=== PATIENT | male | born 1960 | race Two or more races ===

== ENCOUNTER 2025-04-22 08:00 | Day surgery (SDC) | payer OTHER ==
[2025-04-22] MEDS ORDERED: DIPHENHYDRAMINE HCL 50 MG/ML VIAL 1ML IV ONE ×2 (10:30→11:00)
[2025-04-22] MEDS ORDERED: MIDAZOLAM HCL 2 MG/2 ML VIAL IV ONE ×2 (10:30→11:00)
[2025-04-22] MEDS ORDERED: fentaNYL CITRATE 50 MCG/ML AMPUL IV PUSH ONE ×2 (10:30→11:00)
== END 2025-04-22 11:45 | disposition home or self-care (01) ==
LOC: AMB-ENDOS 08:00
PROVIDERS: ATTEND Surgery
DX: K63.5 Polyp of colon (principal); D12.2 Benign neoplasm of ascending colon; K57.30 Diverticulosis of large intestine without perforation or abscess without bleeding

== ENCOUNTER 2025-05-16 11:00 | Inpatient (IN) | payer OTHER ==
[~2025-05-16] VITALS: Ht 167.6 cm; Wt 86.2 kg
[2025-05-24] MEDS ORDERED: CEFTRIAXONE SODIUM 2,000 MG VIAL ONE (12:13)
[2025-05-24] MEDS ORDERED: METRONIDAZOLE/SODIUM CHLORIDE 500 MG/100 ML PIGGYBACK IV ONE ×2 (12:13→17:00)
[2025-05-24] MEDS ORDERED: BUPIVACAINE HCL/MPF 0.5% 30ML VIAL ONE (12:50)
[2025-05-24] MEDS ORDERED: LIDOCAINE HCL 1%/EPINEPHRINE 20ML VIAL IJ ONE ×2 (12:50→17:00)
[2025-05-24] MEDS ORDERED: CEFTRIAXONE SODIUM 2,000 MG VIAL IV ONE (17:00)
[2025-05-24] MEDS ORDERED: BUPIVACAINE HCL 30 ML VIAL IJ ONE (17:00)
[2025-05-24] MEDS ORDERED: hydrALAZINE HCL 20 MG VIAL ONE (17:39)
[2025-05-24] MEDS ORDERED: SUGAMMADEX SODIUM 200 MG/2 ML VIAL IV ONE ×2 (17:39→18:45)
[2025-05-24] MEDS ORDERED: OxyCODONE HCL 5 MG TABLET (ROXICODONE) PO PRN (18:00)
[2025-05-24] MEDS ORDERED: RINGERS SOLUTION,LACTATED 1,000 ML IV SCH (18:00)
[2025-05-24] MEDS ORDERED: MORPHINE SULFATE 4 MG/ML CARTRIDGE IV PRN (18:00)
[2025-05-24] MEDS ORDERED: ONDANSETRON HCL 2 MG/ML VIAL IV PRN (18:00)
[2025-05-24] MEDS ORDERED: DEXTROSE 50 % IN WATER 0.5 G/ML DISP.SYRIN IV PRN (18:00)
[2025-05-24] MEDS ORDERED: hydrALAZINE HCL 20 MG VIAL IV ONE (18:45)
[2025-05-24] MEDS ORDERED: ACETAMINOPHEN 500 MG GEL..CAP PO SCH (20:00)
[2025-05-24] MEDS ORDERED: FAMOTIDINE/PF 20 MG/2 ML VIAL IV PUSH SCH (21:00)
[2025-05-24] MEDS ORDERED: FAMOTIDINE/PF 20 MG/2 ML VIAL ONE (21:19)
[2025-05-24 22:01] LABS: BASO % 0.2 % (0.1-1.2); EOS # 0.00 (0.04-0.54); EOS % 0.0 % (0.7-7.0); LYMPH # 1.11 (1.18-3.74); LYMPH % 4.8 % (19.3-53.1); MEAN PLATELET VOLUME 9.60 fl (9.4-12.4); MONO # 1.48 (0.24-0.82); MONO % 6.4 % (4.7-12.5); NEUT # 20.23 (1.56-6.13); NEUT % 88.2 % (34.0-71.1); RED CELL DISTRIBUTION WIDTH 11.9 % (11.6-14.4)
[2025-05-24 22:22] LABS: BUN CREA RATIO 18.0 (7.0-25.0); CREATININE SERUM 0.78 mg/dL (0.70-1.30); GFR 100.85; GLUCOSE FASTING 160.0 mg/dL (65-100); OSMOLALITY SERUM 281.0 MOSM/KG (275-295)
[2025-05-24] MEDS ORDERED: GABAPENTIN 300 MG CAPSULE PO ONE (23:46)
[2025-05-24] MEDS ORDERED: ACETAMINOPHEN 500 MG GEL..CAP PO ONE (23:46)
[2025-05-25] MEDS ORDERED: GABAPENTIN 300 MG CAPSULE PO SCH (01:00)
[2025-05-25] MEDS ORDERED: ONDANSETRON HCL 2 MG/ML VIAL ONE (01:54)
[2025-05-25 02:47] VITALS: BP 143/82; O2SAT 98
[2025-05-25] MEDS ORDERED: ENALAPRILAT DIHYDRATE 1.25 MG/ML VIAL IV PRN (07:45)
[2025-05-25 07:49] LABS: BASO % 0.2 % (0.1-1.2); EOS # 0.00 (0.04-0.54); EOS % 0.0 % (0.7-7.0); LYMPH # 1.33 (1.18-3.74); LYMPH % 7.0 % (19.3-53.1); MEAN PLATELET VOLUME 9.60 fl (9.4-12.4); MONO # 1.57 (0.24-0.82); MONO % 8.2 % (4.7-12.5); NEUT # 16.05 (1.56-6.13); NEUT % 84.3 % (34.0-71.1); RED CELL DISTRIBUTION WIDTH 11.9 % (11.6-14.4)
[2025-05-25 08:00] VITALS: BP 167/97; O2SAT 97
[2025-05-25 08:14] LABS: BUN CREA RATIO 15.0 (7.0-25.0); CREATININE SERUM 0.88 mg/dL (0.70-1.30); GFR 87.75; GLUCOSE FASTING 128.0 mg/dL (65-100); OSMOLALITY SERUM 281.0 MOSM/KG (275-295)
[2025-05-25] MEDS ORDERED: AMLODIPINE BESYLATE 10 MG TABLET PO SCH (09:00)
[2025-05-25] MEDS ORDERED: LOSARTAN POTASSIUM 100 MG TABLET PO SCH (09:00)
[2025-05-25] MEDS ORDERED: HYDROCHLOROTHIAZIDE 25 MG TABLET PO SCH (09:00)
[2025-05-25 16:00] VITALS: BP 133/75; O2SAT 97
[2025-05-25] MEDS ORDERED: ATORVASTATIN CALCIUM 40 MG TABLET PO SCH (17:00)
[2025-05-25] MEDS ORDERED: ENOXAPARIN SODIUM 40 MG/0.4 ML SYRINGE SUBCUTANEO SCH (17:00)
[2025-05-26 01:18] VITALS: BP 149/78; O2SAT 98
[2025-05-26 07:45] LABS: BASO % 0.4 % (0.1-1.2); EOS # 0.03 (0.04-0.54); EOS % 0.2 % (0.7-7.0); LYMPH # 2.38 (1.18-3.74); LYMPH % 16.8 % (19.3-53.1); MEAN PLATELET VOLUME 9.60 fl (9.4-12.4); MONO # 1.48 (0.24-0.82); MONO % 10.4 % (4.7-12.5); NEUT # 10.22 (1.56-6.13); NEUT % 71.9 % (34.0-71.1); RED CELL DISTRIBUTION WIDTH 12.2 % (11.6-14.4)
[2025-05-26 08:00] VITALS: BP 122/76; O2SAT 98
[2025-05-26] MEDS ORDERED: ENOXAPARIN SODIUM 40 MG/0.4 ML SYRINGE SUBCUTANEO SCH ×2 (09:00→17:00)
[2025-05-26 17:44] VITALS: BP 132/81; O2SAT 95
[2025-05-27 00:04] VITALS: BP 136/80; O2SAT 95
[2025-05-27 08:32] VITALS: BP 128/84; O2SAT 97
[2025-05-27] MEDS ORDERED: NEURONTIN300 MG PO (12:10)
[2025-05-27] MEDS ORDERED: TYLENOL ARTHRI650 MG PO (12:10)
== END 2025-05-27 14:42 | disposition home or self-care (01) | DRG 331 ==
LOC: SURH 05-24 09:00 → O/R 05-24 12:00 → SURH 05-24 12:00
PROVIDERS: ADMIT Surgery; ATTEND Surgery
PROC: 07BC4ZZ Excision of Pelvis Lymphatic, Percutaneous Endoscopic Approach (ICD-10-PCS; 2025-05-24)
PROC: 0DTF4ZZ Resection of Right Large Intestine, Percutaneous Endoscopic Approach (ICD-10-PCS; principal; 2025-05-24 09:00)
DX: D12.2 Benign neoplasm of ascending colon (principal); K63.5 Polyp of colon; R59.0 Localized enlarged lymph nodes; I10 Essential (primary) hypertension